=== PATIENT | female | born 1980 | race Caucasian/White ===

== ENCOUNTER 2018-08-29 13:27 | Emergency (ER) | payer BC, OTHER ==
[~2018-08-29] VITALS: Ht 160 cm; Wt 79.8 kg
[~2018-08-29 13:27] MED LIST: ONDA4TAB8 PO
[2018-08-29 13:29] VITALS: BP 115/75; PULSE 101; RESP 18; Ht 160 cm; Wt 79.8 kg
[2018-08-29] MEDS ORDERED: KETOROLAC 30 MG INJ IM STA (13:45)
--- NOTE | 2018-08-29 13:58 | ERD ---
ER Documentation Chief Complaint Chief Complaint headache x3 days, migraine medication not working HPI 38-year-old female with history of migraine present ED with migraine headache times 3 days. Patient states that Imitrex is not working for her at this time. Patient reports photophobia, nausea, and vomiting. She is unable to tolerate any p.o. intake. In addition, patient reports several episodes diarrhea yesterday, as well as palpitation 30 minutes ago. The palpitation has resolved. Her last dose of Imitrex was yesterday, which she reported it was vomited out. LMP was 3 days ago, right at the onset of the headache. Denies shortness of breath. Denies chest pain. Denies abdominal pain. Denies focal neuro deficit. ROS All systems reviewed and are negative except as per history of present illness. Medications Home Meds Active Scripts Ondansetron (Ondansetron Odt) 4 Mg Tab.rapdis, 4 MG PO Q6H PRN for NAUSEA AND/OR VOMITING, #10 TAB Prov:WILLEM RAMIREZ [employer] 08/29/18 Ondansetron Hcl* (Zofran*) 4 Mg Tablet, 4 MG PO Q6H for NAUSEA AND/OR VOMITING, #20 TAB Prov:JERARDO ALBERT DO 09/09/15 Allergies Allergies: Coded Allergies: No Known Allergy (Unverified , 07/29/14) PMhx/Soc History of Surgery: Yes (fibroids) Hx Neurological Disorder: Yes (MIGRAINES) Hx Alcohol Use: Yes Hx Substance Use: No Hx Tobacco Use: Yes Smoking Status: Current some day smoker Physical Exam Vitals Vital Signs Date Temp Pulse Resp B/P (MAP) Pulse Ox O2 O2 Flow FiO2 Time Delivery Rate 08/29/18 98.2 101 18 115/75 97 13:29 (88) Physical Exam General: Well-developed, well-nourished, conscious and coherent, in no distress Skin: Warm and dry without rash, good texture and turgor Head: Normocephalic without evidence of trauma Eyes: Sclera and conjunctivae normal; pupils equal, round, and reactive to light; extraocular movements are intact Neck: Supple without meningismus or adenopathy. Carotids are equal. Trachea midline. No bruits or JVD Chest: Normal AP diameter. Good expansion without retractions. Nontender. Lungs are clear to auscultate bilaterally with good tidal volume Heart: Regular rate and rhythm. No murmur, rub, or gallops heard Abdomen: Soft and nontender without masses, guarding, or rebound. Bowel sounds are active. No hepatosplenomegaly Extremities: Full range of motion. Good strength bilaterally. No erythema, ecchymosis, or edema. Peripheral pulses are intact. Sensation intact Neuro: Alert and oriented 4; GCS 15. Cranial nerves II - XII intact. Motor sensory exam nonfocal. Moves all extremities. Deep tendon reflexes 2+ in all extremities. Speech clear. No pronator drift. Gait steady. Results 24 hrs Laboratory Tests Test 08/29/18 14:05 POC Beta HCG, Qualitative NEGATIVE Current Medications Medications Dose Sig/Liane Start Time Status Last (Trade) Ordered Route PRN Stop Time Admin Dose Reason Admin Ketorolac 30 mg ONCE STAT 08/29/18 DC 08/29/18 Tromethamine IM 13:45 08/29/18 14:10 (Toradol) 13:47 25 mg ONCE ONCE 08/29/18 DC 08/29/18 Diphenhydrami IM 14:00 08/29/18 14:10 ne HCl 14:01 (Benadryl) 10 mg ONCE ONCE 08/29/18 DC 08/29/18 Prochlorperaz PO 14:00 08/29/18 14:10 ine 14:01 (Compazine) Ondansetron 4 mg ONCE STAT 08/29/18 DC 08/29/18 HCl (Zofran ODT 15:06 08/29/18 15:12 Odt) 15:07 Procedures/MDM Well-appearing 38-year-old female present ED with migraine headache times 3 days. Patient is given 30 mg Toradol IM, Benadryl 25 mg IM, and Compazine 10 mg p.o. Patient reports complete resolution of the headache after the medications. However, patient still reports feeling nauseous, and as well as one episode of vomiting. Zofran 4 mg ODT that was then given to the patient. Patient is nausea vomiting is resolved after Zofran. I doubt meningitis, encephalitis, giant cell arteritis, glaucoma, subarachnoid hemorrhage, subdural or epidural hematoma, intracranial bleeding or tumor. I doubt stroke. Patient appears well, stable for discharge and outpatient management. Medical decision making shared with patient and family. Education provided to patient and family. Patient and family expressed understanding of the plan. Medications on discharge: Zofran. Follow-up: Primary care provider in 2-3 days or return to ED if worse. Disclaimer: Inadvertent spelling and grammatical errors are likely due to EHR/dictation software use and do not reflect on the overall quality of patient care. Also, please note that the electronic time recorded on this note does not necessarily reflect the actual time of the patient encounter. Departure Diagnosis: Primary Impression: Migraine Migraine type: unspecified Status migrainosus presence: without status migrainosus Intractability: not intractable Qualified Codes: G43.909 - Migraine, unspecified, not intractable, without status migrainosus Condition: WILLEM Phipps NP Aug 29, 2018 13:57
[2018-08-29] MEDS ORDERED: DIPHENHYDRAMINE 50 MG INJ IM ONE (14:00)
[2018-08-29] MEDS ORDERED: PROCHLORPERAZINE 10 MG TAB PO ONE (14:00)
[2018-08-29] MEDS ORDERED: ONDANSETRON (ODT) 4 MG TAB ODT STA (15:06)
[2018-08-29] MEDS ORDERED: ONDA4TAB14 PO (15:08)
== END 2018-08-29 15:15 | disposition home or self-care (01) ==
LOC: FTE 13:27
DX: G43.909 Migraine, unspecified, not intractable, without status migrainosus (principal); R40.2412 Glasgow coma scale score 13-15, at arrival to emergency department; F17.210 Nicotine dependence, cigarettes, uncomplicated
CPT/HCPCS: 81025; 96372; 99284; J1200; J1885